=== PATIENT | female | born 1990 | race Two or more races ===

== ENCOUNTER 2025-11-09 16:49 | Observation (INO) | payer MEDICAID, SELFPAY ==
[2025-11-09] VITALS (24 sets, daily range): BP systolic 110; BP diastolic 72; PULSE 60–88; RESP 16–97; TEMP 36.9; O2SAT 96–99; BMI 36.8
[2025-11-09] MEDS: BETAMET ACET/BETAMET NA PH (Celestone) 6 MG/ML VIAL 12 MG IM (17:48)
[2025-11-09 18:02] LABS: Collection Type, Urine Clean Catch
[2025-11-09 18:35] LABS: Bacteria,Urine Rare; Bilirubin,Urine Negative (Negative); Blood,Urine Negative (Negative); Clarity,Urine Clear (Clear/Hazy); Color,Urine Lt-Yellow (Lt Yel-Yel); Glucose, Urine Negative (Negative); Ketones,Urine Negative (Negative); Leukocyte Esterase,Urine Negative (Negative); Nitrite,Urine Negative (Negative); PH,Urine 6.5 (5.0-7.0); Protein,Urine Negative (Neg - Trace); RBC,Urine 2 /hpf (0-3); Specific Gravity,Urine 1.007 (1.001-1.035); Squamous Epithelial Cell,Urine 2 /hpf (0-5); Urobilinogen,Urine Negative mg/dL (0.0-1.0); WBC,Urine < 1 /hpf (0-5)
== END 2025-11-09 19:00 | disposition home or self-care (01) ==
PROVIDERS: Admitting Provider Specialist; Visit Provider Specialist
DX: O47.03 False labor before 37 completed weeks of gestation, third trimester (principal); Z3A.34 34 weeks gestation of pregnancy
CPT/HCPCS: 59899; 81001; 96372; J0702

== ENCOUNTER 2025-11-10 17:56 | Outpatient (CLI) | payer MEDICAID, SELFPAY ==
[2025-11-10] VITALS (10 sets, daily range): BP systolic 121; BP diastolic 67; PULSE 62–70; RESP 18–97; TEMP 36.8; O2SAT 97–100; BMI 37.0
[2025-11-10] MEDS: BETAMET ACET/BETAMET NA PH (Celestone) 6 MG/ML VIAL 12 MG IM (19:09)
== END 2025-11-10 19:40 | disposition home or self-care (01) ==
LOC: S4S1 17:59 → S4SX 18:00
PROVIDERS: Referring Provider Specialist; Visit Provider Specialist
DX: Z34.83 Encounter for supervision of other normal pregnancy, third trimester (principal); Z36.9 Encounter for antenatal screening, unspecified; Z3A.34 34 weeks gestation of pregnancy
CPT/HCPCS: 59025; 96372; J0702

== ENCOUNTER 2025-11-26 09:29 | Inpatient (IN) | payer MEDICAID, SELFPAY ==
--- NOTE | 2025-11-23 15:44 | ESHP_ITS ---
RE: RADHA SHERWOOD : 1990 DATE OF ADMISSION: 11/26/2025 HISTORY OF PRESENT ILLNESS: This is a 35-year-old 6, para 5-0-0-5, with due date of 12/20 with intrauterine at 36 weeks and 4 day, who is admitted for induction of labor for severe cholestasis of . The patient has a bile acid level on 11/02 of 293 with elevated liver enzymes, AST was 201 and ALT was 598. She subsequently was placed on ursodiol and her total bile acids came down to 22 on 11/16 with liver enzymes improved with AST of 111 and ALT of 290. The patient is admitted for induction of labor at 36-37 weeks for severe cholestasis. The patient also has gestational diabetes mellitus, diet-controlled. Her most recent ultrasound on 11/16 showed overall growth at the 85th percentile with a weight of 6 pounds 10 ounces and an abdominal circumference at the 99th percentile. Her blood sugars have been well controlled on diet. She received betamethasone on 11/10 and 11/11. ALLERGIES: NO KNOWN DRUG ALLERGIES. MEDICATIONS: 1. Ursodiol 300 mg 1 p.o. t.i.d. 2. vitamin 1 p.o. daily. PAST MEDICAL HISTORY: Cholestasis of and gestational diabetes mellitus class A1. SOCIAL HISTORY: She is . She denies any alcohol, drug use, or smoking. OBSTETRICAL HISTORY: 1. 2011: 40-week normal vaginal delivery, 5 pound 13 ounce female, no complications. 2. 2015: 40-week normal vaginal delivery, 7 pound 19 ounce male, no complications. 3. 2018: 40-week normal vaginal delivery, 7 pounds 9 ounce male, no complications. 4. 08/2022: 40-week normal vaginal delivery, 6 pound 3 ounce male, no complications. 5. 01/2024: 37-week normal vaginal delivery, 6 pound female, complicated by cholestasis of . REVIEW OF SYSTEMS: She has itching that has improved on ursodiol. She denies any headache, change of vision, or right upper quadrant pain. She denies any chest pain, palpitations, cough, fever, shortness of breath, flank pain, or lower extremity pain or swelling. She denies any leaking or bleeding. She reports normal movement. PAST SURGICAL HISTORY: Cholecystectomy. PHYSICAL EXAMINATION: VITAL SIGNS: Blood pressure 108/62, heart rate 88, respirations 18, temperature is 98.2, weight 191 pounds. HEENT: Oropharynx and sclerae clear. LUNGS: Clear to auscultation bilaterally. HEART: Regular rate and rhythm. ABDOMEN: Gravid, consistent with estimated weight 7-1/4 quarter pounds. EXTREMITIES: Nontender. SKIN: No gross rashes or lesions. NEUROLOGICAL: No focal deficit. ASSESSMENT AND PLAN: Intrauterine at 36 weeks and 4 day. Severe cholestasis of . Induction of labor. Gestational diabetes mellitus class A1, well controlled. Anticipate spontaneous vaginal delivery. Informed consent was obtained. The patient was made aware of the risks, complication, alternatives, and benefits of the proposed procedure, and she agrees. She is aware of the risk of operative vaginal delivery and delivery and agrees with these modes of delivery if indicated. DT: 11:16:15 TT: 11:32:00 Ref: [id number] - TID: [id number] [facility]
[2025-11-26 09:50] VITALS: BP 111/72; PULSE 90; RESP 20; TEMP 37; BMI 37.2
--- NOTE | 2025-11-26 10:25 | XR_ITS ---
Examination: Complete OB ultrasound greater than 14 weeks Date and time of exam: November 26, 2025, 1120 hours INDICATIONS: Labor induction today, preop, unknown presentation. Findings: Viable intrauterine single fetus with single amniotic sac presentation cephalic spine maternal right Cardiac motion 152 bpm Placenta anterior grade 2 Umbilical cord insertion seen Amniotic fluid index 12.9 cm Cervix 2.8 cm Ovaries obscured by bowel gas. Composite estimated gestational age based on BPD, head circumference, abdominal circumference, femur length is 36 weeks 3 days Estimated weight 2994 g. Survey of intracranial anatomy, spinal anatomy, abdominal anatomy, four-chamber heart performed with no abnormalities identified. Impression: Viable intrauterine gestation cephalic presentation.
[2025-11-26 10:47] LABS: Basophils # (Auto) 0.0 Thou/mm3 (0.0-0.2); Basophils % (Auto) 0 % (0-2.5); Eosinophils # (Auto) 0.1 Thou/mm3 (0.0-0.5); Eosinophils % (Auto) 1 % (0-10); Hematocrit 35.0 % (36.0-46.0); Hemoglobin 11.8 g/dL (12.0-16.0); Immature Granulocytes Auto 0.02 Thou/mm3 (0.00-0.00); Lymphocytes # (Auto) 1.2 Thou/mm3 (1.0-4.8); Lymphocytes % (Auto) 23 % (10-50); Mean Corpuscular HGB Conc 33.7 g/dl (31.0-37.0); Mean Corpuscular Hemoglobin 29.4 pg (25.0-35.0); Mean Corpuscular Volume 87 fL (80-100); Monocytes # (Auto) 0.4 Thou/mm3 (0.0-0.8); Monocytes % (Auto) 8 % (0-12); Neutrophils # (Auto) 3.5 Thou/mm3 (1.8-7.7); Neutrophils % (Auto) 68 % (37-80); Nucleated Red Blood Cell # 0.00 Thou/mm3 (0.00-0.00); Nucleated Red Blood Cell % 0 /100 WBC (0); Platelet Count 122 Thou/mm3 (140-440); RDW Standard Deviation 43.8 fL (36.4-46.3); Red Blood Count 4.02 Miln/mm3 (4.00-5.20); White Blood Count 5.2 Thou/mm3 (3.6-11.0)
[2025-11-26 11:04] LABS: Alanine Aminotransferase 31 U/L (10-49); Albumin, Serum 3.9 gm/dL (3.5-5.0); Albumin/Globulin Ratio 1.4 (1.2-2.2); Alkaline Phosphatase 185 U/L (46-116); Anion Gap 11 (7-16); Aspartate Amino Transferase 22 U/L (0-34); BUN/Creatinine Ratio 8 Ratio (12-20); Bilirubin,Total 0.3 mg/dL (0.3-1.2); Blood Urea Nitrogen 5 mg/dL (9-23); Calcium 8.7 mg/dL (8.3-10.6); Calcium (Corrected) 8.8 mg/dL (8.5-10.1); Carbon Dioxide 21.9 mMol/L (20.0-31.0); Chloride 107 mMol/L (98-107); Creatinine (Component) 0.6 mg/dL (0.6-1.3); Estimated Creatinine Clearance 127.9 mL/min (>60); Globulin 2.8 gm/dL (2.3-3.5); Glucose 85 mg/dL (74-106); Osmolality,Calculated 275 (275-295); Potassium 4.1 mMol/L (3.4-5.1); Sodium 140 mMol/L (136-145); Total Protein 6.7 gm/dL (5.7-8.2); Uric Acid 6.1 mg/dL (3.1-7.8); eGFR > 60 See Note
[2025-11-26 11:06] LABS: Syphilis Nonreactive (Nonreactive)
[2025-11-26 11:27] LABS: INR 0.9 (0.9-1.3); Partial Thromboplastin Time 27.3 Seconds (22.0-36.0); Prothrombin Time 9.8 Seconds (9.0-12.2)
[2025-11-26 11:28] LABS: Collection Type, Urine Clean Catch
[2025-11-26 11:29] LABS: Fibrinogen 613 mg/dL (175-375)
[2025-11-26 11:41] LABS: Creatinine,Random Urine 20 mg/dL (30-125); Protein Total, Random Urine < 6 mg/dL (1-14)
[2025-11-26 11:47] LABS: Bacteria,Urine 1+; Bilirubin,Urine Negative (Negative); Blood,Urine Negative (Negative); Clarity,Urine Clear (Clear/Hazy); Color,Urine Colorless (Lt Yel-Yel); Glucose, Urine Negative (Negative); Ketones,Urine Negative (Negative); Leukocyte Esterase,Urine Positive (Negative); Nitrite,Urine Negative (Negative); PH,Urine 7.0 (5.0-7.0); Protein,Urine Negative (Neg - Trace); RBC,Urine 1 /hpf (0-3); Specific Gravity,Urine 1.004 (1.001-1.035); Squamous Epithelial Cell,Urine 1 /hpf (0-5); Urobilinogen,Urine Negative mg/dL (0.0-1.0); WBC,Urine 4 /hpf (0-5)
[2025-11-26] MEDS: RINGERS LACTATED 1000 ML 1,000 ML 100 ML IV (12:33)
[2025-11-26] MEDS: Ampicillin Inj 2,000 MG in SODIUM CHLORIDE 0.9% (POP) 100 ML 100 MG IV (12:33)
[2025-11-26 15:46] VITALS: BP 119/65; PULSE 85; RESP 18; TEMP 36.7
[2025-11-26 15:47] VITALS: PULSE 90; O2SAT 98
[2025-11-26] MEDS: Ampicillin Inj 1,000 MG in SODIUM CHLORIDE 0.9% (Popper) 50 ML 50 MG IV ×2 (17:00→20:21)
[2025-11-26 19:08] VITALS: BP 116/72; PULSE 82
[2025-11-26 19:26] VITALS: RESP 16; TEMP 36.7
[2025-11-27] VITALS (51 sets, daily range): BP systolic 94–145; BP diastolic 53–82; PULSE 51–123; RESP 14–20; TEMP 36.5–37.2; O2SAT 60–99
[2025-11-27] MEDS: Ampicillin Inj 1,000 MG in SODIUM CHLORIDE 0.9% (Popper) 50 ML 50 MG IV ×2 (00:38→05:01)
--- NOTE | 2025-11-27 07:45 | PD.LDPN ---
Documentation for date of: 11/27/25 OB Labor Progress Note Pelvic Exam Dilation (cm): 0 Effacement (%): 0 station: -3 Amniotic membrane status: Intact Contractions Monitor mode: External Contraction frequency: 1-6 Contraction intensity: Moderate Status status: Category l Assessment and Plan Comments: Cervical ripening ongoing History of Present Illness HPI Pt denies any problem or complaint
[2025-11-27] MEDS: LIDOCAINE HCL 1% 20 ML VIAL INFL (08:45)
[2025-11-27] MEDS: TRANEXAMIC ACID 1,000 MG IVPB 1,000 MG/100 ML BAG 200 MG IV (08:45)
[2025-11-27] MEDS: BENZO/LANO/ALOE (Dermoplast) 60 GM CAN 1 SPRAY TOP (08:45)
[2025-11-27] MEDS: OXYTOCIN in NS 20 units 20 UNIT/1,000 ML BAG 125 UNIT IV (08:45)
[2025-11-27] MEDS: IBUPROFEN TAB 400 MG TABLET 800 MG PO ×2 (08:53→20:13)
--- NOTE | 2025-11-27 10:22 | PD.LDDELS ---
Data ([facility]) Data Hx Section: No : 6 Term: 4 : 1 Livin Abortions: Spontaneous & Theraputic: 0 Delivery Data ([facility]) Labor Data Initiation of labor: Induction Induction/Augmentation Agent: Cytotec-PO and Cervidil ROM date: 11/27/25 ROM time: 08:11 Amniotic membrane rupture type: Spontaneous Amniotic fluid description: Clear Delivery Data EDC: 12/20/25 EDC calculated by:: LMP/early US confirmation Onset of labor date: 11/27/25 Onset of labor time: 07:00 Complete dilation date: 11/27/25 Complete dilation time: 08:07 Pound delivery date: 11/27/25 delivery time: 08:17 Gestational age (weeks): 36 Gestational age (days): 5 Placenta delivery date: 11/27/25 Placenta delivery time: 08:24 Stage 1 total time: Labor - Stage 1 Duration 1 hours and 7 minutes Delivered by: Juan Pablo Delgado Delivery nurse: ANGELIQUE Desai Neworn nurse: ANGELIQUE Frank [employer] Media Technician at delivery: No Support person(s) at delivery: FOB Other staff at delivery: machine packer Sharon Quintana Delivery Method Delivery method: Normal Vaginal Delivery Presentation: Vertex Anesthesia Type Anesthesia Type: Local Anesthesia type: Local (lidocaine plain 1%) Placenta Placenta delivery description: Spontaneous Cord blood sent to lab: Yes cord blood collection: Cord Blood Type Episiotomy Episiotomy description: None Lacerations #1: Perineal: 1st degree Perineal repair Sutures used for repair: 3.0 Chromic EBL Estimated blood loss (ml): 200 Umbilical Cord cord description: Nuchal Cord and Tight Complications Complications: None Data ([facility]) Data order: 1 Pound's gender: Female Identification band number: [id number] weight (gms): 6 lb 15.466 oz Weight (pounds): 6 lbs and 15.5 ozs length: 18.75 in 1 minute: 7 5 minutes: 8
--- NOTE | 2025-11-27 10:22 | PD.LDDS ---
DS: Providers Provider Date of admission: 11/26/25 09:29 Primary care physician: Physician No Primary/Family Admitting Provider: Juan Pablo Delgado MD Attending Provider on Admission: Juan Pablo Delgado MD Attending Provider on DC: Juan Pablo Delgado MD Discharging Provider: Juan Pablo Delgado MD DS: Diagnosis Problem List Completed Was Problem List Reviewed/Reconciled?: Yes Summary/Hosp Course Brief History: Pt denies any problem or complaint Peripartum Data Delivery Method: Normal Vaginal Delivery Episiotomy Description: None Time Spent with Patient Time attestation: Total time spent providing and/or coordinating discharge services: Exam Vital Signs Temp Pulse Resp BP Pulse Ox O2 Del Method 97.9 F 56 L 19 102/56 L 60 L Room Air 11/27/25 08:45 11/27/25 10:20 11/27/25 08:45 11/27/25 10:20 11/27/25 08:33 11/27/25 08:45 Discharge Plan Plan Patient Disposition: HOME (Self Care) Patient condition on transfer: Stable Prescriptions/Referrals Prescriptions/Med Rec: New ibuprofen 600 mg tablet 600 mg PO Q6H PRN (Reason: pain) Qty: 30 0RF Continued Vitamin 27 mg iron- 0.8 mg Tablet 1 tab PO QDAY ursodiol 300 mg capsule 300 mg PO QDAY Patient Comments: TAKE 1 CAPSULE BY MOUTH TWICE DAILY Referrals: No Primary/Family,Physician [Primary Care Provider] Patient/Caregiver Discharge Instructions Other Discharge Activity Instructions:: Only needs Ursodiol if she continues to itch Follow up office 6 wks Print Language: Bulgarian Stand Alone Forms: Karen Award Info., Patient Portal Info Letter Planned Discharge Date 11/28/25
--- NOTE | 2025-11-27 10:39 | PC.NURSE ---
0845: Per DR MELCHOR, he will order ursodoil TID scheduled; hold medication if she is not having symptoms of itching .
[2025-11-27 12:54] LABS: Basophils # (Auto) 0.0 Thou/mm3 (0.0-0.2); Basophils % (Auto) 0 % (0-2.5); Eosinophils # (Auto) 0.0 Thou/mm3 (0.0-0.5); Eosinophils % (Auto) 0 % (0-10); Hematocrit 32.7 % (36.0-46.0); Hemoglobin 11.0 g/dL (12.0-16.0); Immature Granulocytes Auto 0.02 Thou/mm3 (0.00-0.00); Lymphocytes # (Auto) 0.9 Thou/mm3 (1.0-4.8); Lymphocytes % (Auto) 10 % (10-50); Mean Corpuscular HGB Conc 33.6 g/dl (31.0-37.0); Mean Corpuscular Hemoglobin 29.3 pg (25.0-35.0); Mean Corpuscular Volume 87 fL (80-100); Monocytes # (Auto) 0.7 Thou/mm3 (0.0-0.8); Monocytes % (Auto) 7 % (0-12); Neutrophils # (Auto) 7.4 Thou/mm3 (1.8-7.7); Neutrophils % (Auto) 82 % (37-80); Nucleated Red Blood Cell # 0.00 Thou/mm3 (0.00-0.00); Nucleated Red Blood Cell % 0 /100 WBC (0); Platelet Count 133 Thou/mm3 (140-440); RDW Standard Deviation 43.4 fL (36.4-46.3); Red Blood Count 3.76 Miln/mm3 (4.00-5.20); White Blood Count 9.0 Thou/mm3 (3.6-11.0)
[2025-11-28 04:27] VITALS: BP 109/72; PULSE 55; RESP 18; TEMP 36.4; O2SAT 97
[2025-11-28 08:20] VITALS: BP 108/74; PULSE 72; RESP 16; TEMP 36.7; O2SAT 97
[2025-11-28] MEDS: IBUPROFEN TAB 400 MG TABLET 800 MG PO (08:30)
--- NOTE | 2025-11-28 08:53 | ESPR_ITS ---
RE: RADHA SHERWOOD : 1990 DATE OF SERVICE: 11/28/2025 S: day #1, patient denies any problem or complaints. She is voiding. She is ambulating. She is tolerating diet. She is passing flatus. She denies any itching. She denies any excessive vaginal bleeding. She denies any dizziness or lightheadedness. She denies any chest pain, palpitations, or shortness of breath. O: Vital Signs: Blood pressure 109/72, heart rate 55, respirations 18, temperature is 97.5. Pulse oximetry is 97% on room air. Lungs: Clear to auscultation bilaterally. Heart: Regular rate and rhythm. Abdomen: Fundus is firm, nontender. Extremities: Nontender. LABORATORY DATA: Hemoglobin pre-delivery is 11.8, post-delivery is 11.0. ASSESSMENT: day #1 status post spontaneous vaginal delivery. P: Discharge home. Discharge instructions given. Follow up in the office in 6 weeks. DT: 08:40:26 TT: 08:52:00 Ref: [id number] - TID: [id number]
== END 2025-11-28 15:05 | disposition home or self-care (01) | DRG 560 ==
LOC: S4SX 11-27 10:18 → S4NX 11-27 11:03
PROVIDERS: Admitting Provider Specialist; Visit Provider Specialist
DX: O26.643 Intrahepatic cholestasis of pregnancy, third trimester (principal); O24.420 Gestational diabetes mellitus in childbirth, diet controlled; Z3A.36 36 weeks gestation of pregnancy; Z37.0 Single live birth; O69.1XX0 Labor and delivery complicated by cord around neck, with compression, not applicable or unspecified; O70.0 First degree perineal laceration during delivery; Z90.49 Acquired absence of other specified parts of digestive tract
CPT/HCPCS: 36415; 59409; 76805; 80053; 81001; 82570; 84156; 84550; 85025; 85384; 85610; 85730; 86780; 86850; 86900; 86901; 90686; 94762; J0290; J2590; J3490; J7050; J7120; A9270; J9060